=== PATIENT | male | born 2000 | race Caucasian/White ===

== ENCOUNTER 2019-10-12 19:09 | Emergency (ER) | payer OTHER ==
[~2019-10-12] VITALS: Ht 182.9 cm; Wt 86.4 kg
[2019-10-12 19:15] VITALS: BP 150/74; PULSE 64; TEMP 98.2
== END 2019-10-12 19:45 | disposition home or self-care (01) ==
LOC: COL.ER 19:09
DX: L55.0 Sunburn of first degree (principal); T31.11 Burns involving 10-19% of body surface with 10-19% third degree burns